=== PATIENT | female | born 1990 | race Caucasian/White ===

== ENCOUNTER 2018-02-12 09:52 | Emergency (ER) | payer OTHER ==
[~2018-02-12] VITALS: Ht 170.2 cm; Wt 63.5 kg
[2018-02-12] MEDS ORDERED: LIDOCAINE HCL 2% 20 ML VIAL TP ONE (10:15)
[2018-02-12] MEDS ORDERED: TDAP DIPH,PERTUSS,TET VAC/PF 0.5 ML DISP.SYRIN IM ONE ×2 (10:15→10:23)
--- NOTE | 2018-02-12 10:45 | NUR ---
MSE COMPLETED, PT D/C'D HOME, ACI/RX X1 GIVEN. PT AMBULATED W/O DIFF/TOOK ALL BELONGINGS.
[2018-02-12 11:17] VITALS: BP 111/77
== END 2018-02-12 10:45 | disposition home or self-care (01) ==
LOC: ER 09:52
DX: S91.312A Laceration without foreign body, left foot, initial encounter (principal); S91.352A Open bite, left foot, initial encounter; W54.0XXA Bitten by dog, initial encounter; Y93.89 Activity, other specified; Y92.89 Other specified places as the place of occurrence of the external cause; Y99.8 Other external cause status
CPT/HCPCS: 73630; 90715; A4663

== ENCOUNTER 2018-02-23 13:36 | Emergency (ER) | payer OTHER ==
[~2018-02-23] VITALS: Ht 172.7 cm; Wt 61.7 kg
--- NOTE | 2018-02-23 14:04 | NUR ---
Pt.was seen by .
--- NOTE | 2018-02-23 14:21 | NUR ---
3 sutures was removed,pt. tolerated well.
[2018-02-23 14:22] VITALS: BP 118/68
== END 2018-02-23 14:35 | disposition home or self-care (01) ==
LOC: ER 13:39
DX: S91.312D Laceration without foreign body, left foot, subsequent encounter (principal); L08.9 Local infection of the skin and subcutaneous tissue, unspecified; W54.0XXD Bitten by dog, subsequent encounter
CPT/HCPCS: A4663